=== PATIENT | male | born 1990 | race Caucasian/White ===

== ENCOUNTER 2024-10-02 12:50 | Emergency (ER) | payer OTHER, SELFPAY ==
[2024-10-02] VITALS (10 sets, daily range): BP systolic 119–141; BP diastolic 65–86; PULSE 53–60; RESP 12–17; TEMP 36.6; O2SAT 98–100; BMI 26.6
--- NOTE | 2024-10-02 12:54 | DI.RAD.S_ITS ---
PROCEDURE: XR CHEST 1V INDICATIONS: chest pain TECHNIQUE: One view of the chest was acquired. COMPARISON: None. FINDINGS: Surgical changes and devices: None. Lungs and pleura: An incomplete inspiratory result is noted, causing a crowded appearance to the lung markings. No focal infiltrates are seen. No pneumothorax or significant pleural effusions are seen. Mediastinum: Mediastinal contours appear normal. Heart size is normal. Bones and chest wall: No suspicious bony lesions. Overlying soft tissues appear unremarkable. IMPRESSION: Low lung volumes, without an acute abnormality seen by plain film. Dictated by: Dain Coronado M.D. on 10/02/2024 at 12:36 Approved by: Dain Coronado M.D. on 10/02/2024 at 12:36
--- NOTE | 2024-10-02 12:56 | EKG_ITS ---
[address] [id number] [address] [address] Test Date: 2024-10-02 Pat Name: Gokul Luis Department: Room: Gender: Male Dog Warden: LEE : 1990 Requested By: Order Number: [id number] Reading MD: Rajesh Block MD Measurements Intervals [place] Rate: 62 P: 51 OH: 148 QRS: 41 QRSD: 108 T: 35 QT: 386 QTc: 391 Interpretive Statements Normal sinus rhythm Electronically Signed On 10-03-2024 12:58:14 PST by Rajesh Block MD
[2024-10-02 13:12] LABS: Add Manual Diff / Slide Review NO; Basophils Absolute Auto 0 /uL (0-100); Basophils Percent Auto 0.4 % (0-2); Eosinophils Absolute Auto 100 /uL (0-450); Eosinophils Percent Auto 1.1 % (2-4); Hematocrit 47.1 % (41-53); Hemoglobin 16.3 g/dL (13.5-17.5); Lymphocytes Absolute Auto 2200 /uL (1100-4500); Lymphocytes Percent Auto 26.6 % (25-40); Mean Corpuscular HGB Conc 34.5 % (30-36); Mean Corpuscular Hemoglobin 31.3 PG (26-34); Mean Corpuscular Volume 90.8 fL (80-100); Monocytes Absolute Auto 800 /uL (0-900); Monocytes Percent Auto 9.4 % (3-14); Neutrophils Absolute Auto 5200 /uL (1500-7000); Neutrophils Percent Auto 62.5 % (50-75); Platelet Count 223 X10^3/uL (150-400); Red Blood Cell Count 5.19 X10^6/uL (4.5-5.9); Red Cell Distribution Width 12.6 % (11.6-14.8); White Blood Cell Count 8.3 X10^3/uL (4.5-11.0)
[2024-10-02 13:17] LABS: Prothrombin Time 11.4 SECONDS (9.4-12.5)
[2024-10-02 13:20] LABS: PTT Partial Thromboplastin Tim 39 SECONDS (25.1-36.5)
[2024-10-02] MEDS: ASPIRIN 81 MG CHEW TAB 324 MG PO (13:20)
[2024-10-02 13:36] LABS: Alanine Aminotransferase 39 IU/L (<50); Albumin 4.7 g/dL (3.5-5.0); Albumin Globulin Ratio 1.6 (1.0-2.8); Alkaline Phosphatase 55 U/L (38-126); Aspartate Aminotransferase 32 IU/L (17-59); BUN Creatinine Ratio 13.2 (6-22); Bilirubin Total 0.6 mg/dL (0.2-1.3); Blood Urea Nitrogen 15 mg/dL (9-20); Calcium 9.5 mg/dL (8.4-10.2); Carbon Dioxide 26 mmol/L (22-32); Chloride 103 mmol/L (98-107); Creatine Kinase 100 U/L (55-170); Estimated Glomerular Filt Rate > 60 mL/min (>60); Globulin 2.9 g/dL (1.7-4.1); Glucose 96 mg/dL (70-100); HEMOLYSIS < 15 (0-50); Lipase 120 U/L (23-300); Magnesium 1.9 mg/dL (1.6-2.3); Potassium 4.1 mmol/L (3.4-5.1); Sodium 138 mmol/L (137-145); Total Protein 7.6 g/dL (6.3-8.2)
[2024-10-02 13:48] LABS: NT-proBNP (BNP-Adult 18+) < 20 pg/mL (<125); Troponin I < 0.012 ng/mL (0.01-0.034)
--- NOTE | 2024-10-02 15:16 | ED_ITS ---
HPI - Chest Pain General Chief Complaint: Chest Pain Stated Complaint: chest discomfort, chest/shoulder/back tightness Time Seen by Provider: 10/02/24 15:07 History of Present Illness HPI narrative: Patient is a 34-year-old healthy male who presents today with left-sided pain. He reports that a night or 2 ago he would sudden on his shoulders kind of fell backwards and felt some strain all along left side there. This morning he was standing in the kitchen trying to get coffee when he had increasing pain and tingling in his left arm it went into his chest and all the way down his abdomen. He then felt like he was panicking and having difficulty breathing. But now symptoms have all completely resolved. He was absolutely no chest pain shortness of breath. He has not had fever chills sore throat or cough. Family history includes grandfather having VT at age greater than 60. He is overall feeling better asking if he can eat. Related Data Allergies Allergy/AdvReac Type Severity Reaction Status Date / Time No Known Drug Allergies Allergy Verified 10/02/24 13:19 Exam Initial Vital Signs Initial Vital Signs: Vital Signs Pulse Rate 59 L 10/02/24 12:55 Respiratory Rate 16 10/02/24 12:55 Blood Pressure 141/86 H 10/02/24 12:55 Pulse Oximetry 99 10/02/24 12:55 GENERAL: Well-appearing, well-nourished and in no acute distress. HEENT: Head atraumatic,EOMI, pupils reactive, face symmetric, moist mucous membranes CARDIOVASCULAR: Regular rate and rhythm without murmurs, rubs or gallops. RESPIRATORY: Breath sounds equal bilaterally, no wheezes rales or rhonchi. ABDOMEN: Soft, nontender. Normoactive bowel sounds all 4 quadrants. No guarding or rebound. EXTREMITIES: Normal range of motion, no clubbing or edema. Neurovascularly intact NEUROLOGICAL: Alert and oriented x4.Normal gait and speech. Cranial nerves II through XII grossly intact. SKIN: Warm, dry, no laceration, no petechiae, no rashes or lesions. Scores HEART Score Heart Score history: Slightly Suspicious Heart Score EKG: Normal Heart Score Age: < 45 years old Heart Score risk factors: No known risk factors Heart Score troponin: < or = to normal limit Heart Score Total: 0 Course Orders Ordered: ED Orders 10/02/24 12:54 XR chest 1V Stat EKG-12 Lead Stat 10/02/24 13:00 Complete Blood Count AUTO DIFF Stat Comprehensive Metabolic Panel Stat Lipase Stat Magnesium Stat NT-proBNP (BNP-Adult 18+) Stat PTT Partial Thromboplastin Abhishek Stat Prothrombin Time INR Stat Troponin & CK Cardiac Panel Stat 10/02/24 14:53 Trop I [Troponin I] Stat Discontinued Medications Aspirin (Aspirin 81 Mg Chew Tab) 324 mg PO NOW ONE Stop: 10/02/24 12:55 Last Admin: 10/02/24 13:20 Dose: 324 mg Documented By: BRENNAN Vital Signs Vital signs: Vital Signs - 8 hr 10/02/24 12:55 10/02/24 12:58 10/02/24 13:23 Temperature 97.9 F Pulse Rate 59 L 60 59 L Respiratory Rate 16 16 13 Blood Pressure 141/86 H 141/86 H 125/77 Pulse Oximetry 99 99 100 Oxygen Delivery Method Room Air Room Air 10/02/24 13:30 10/02/24 14:00 10/02/24 14:31 Temperature Pulse Rate 56 L 57 L 57 L Respiratory Rate 17 15 Blood Pressure 119/74 121/77 Pulse Oximetry 99 98 Oxygen Delivery Method 10/02/24 15:00 10/02/24 15:27 10/02/24 15:27 Temperature Pulse Rate 56 L 57 L Respiratory Rate 12 15 Blood Pressure 119/72 Pulse Oximetry 100 Oxygen Delivery Method 10/02/24 15:30 10/02/24 15:32 10/02/24 15:32 Temperature Pulse Rate 53 L 56 L Respiratory Rate 13 13 Blood Pressure 124/65 Pulse Oximetry 100 Oxygen Delivery Method MDM - Chest Pain Lab Data 10/02/24 13:00 10/02/24 13:00 Labs: Lab Results 10/02/24 10/02/24 Range/Units 13:00 14:53 WBC 8.3 (4.5-11.0) X10^3/uL RBC 5.19 (4.5-5.9) X10^6/uL Hgb 16.3 (13.5-17.5) g/dL Hct 47.1 (41-53) % MCV 90.8 (80-100) fL MCH 31.3 (26-34) PG MCHC 34.5 (30-36) % RDW 12.6 (11.6-14.8) % Plt Count 223 (150-400) X10^3/uL Neut % (Auto) 62.5 (50-75) % Lymph % (Auto) 26.6 (25-40) % Laurens % (Auto) 9.4 (3-14) % Eos % (Auto) 1.1 L (2-4) % Baso % (Auto) 0.4 (0-2) % Neut # (Auto) 5200 (7003-8168) /uL Lymph # (Auto) 2200 (0251-7498) /uL [place] # (Auto) 800 (0-900) /uL Eos # (Auto) 100 (0-450) /uL Baso # (Auto) 0 (0-100) /uL PT 11.4 (9.4-12.5) SECONDS INR 1.0 (0.9-1.3) APTT 39 H (25.1-36.5) SECONDS Sodium 138 (137-145) mmol/L Potassium 4.1 (3.4-5.1) mmol/L Chloride 103 (98-107) mmol/L Carbon Dioxide 26 (22-32) mmol/L BUN 15 (9-20) mg/dL Creatinine 1.14 (0.66-1.25) mg/dL Estimated GFR > 60 (>60) mL/min BUN/Creatinine Ratio 13.2 (6-22) Glucose 96 (70-100) mg/dL Calcium 9.5 (8.4-10.2) mg/dL Magnesium 1.9 (1.6-2.3) mg/dL Total Bilirubin 0.6 (0.2-1.3) mg/dL AST 32 (17-59) IU/L ALT 39 (<50) IU/L Alkaline Phosphatase 55 (38-126) U/L Total Creatine Kinase 100 (55-170) U/L Troponin I < 0.012 < 0.012 (0.01-0.034) ng/mL NT-Pro-B Natriuret Pep < 20 (<125) pg/mL Total Protein 7.6 (6.3-8.2) g/dL Albumin 4.7 (3.5-5.0) g/dL Globulin 2.9 (1.7-4.1) g/dL Albumin/Globulin Ratio 1.6 (1.0-2.8) Lipase 120 (23-300) U/L Imaging Data Chest x-ray: Radiologist's Impression: PROCEDURE: XR CHEST 1V INDICATIONS: chest pain TECHNIQUE: One view of the chest was acquired. COMPARISON: None. FINDINGS: Surgical changes and devices: None. Lungs and pleura: An incomplete inspiratory result is noted, causing a crowded appearance to the lung markings. No focal infiltrates are seen. No pneumothorax or significant pleural effusions are seen. Mediastinum: Mediastinal contours appear normal. Heart size is normal. Bones and chest wall: No suspicious bony lesions. Overlying soft tissues appear unremarkable. IMPRESSION: Low lung volumes, without an acute abnormality seen by plain film. Dictated by: Dain Coronado M.D. on 10/02/2024 at 12:36 ECG Data Attestation: I personally reviewed and interpreted this ECG as follows: Interpretation: Sinus rhythm rate 62 [place] interval 148 QRS [address] changes no T-wave inversions MDM Narrative Medical decision making narrative: MDM CC: Chest pain Complicating co-morbidities: Healthy 34-year-old male Medical records reviewed: none Differential considered: Acute coronary syndrome pericarditis viral illness pneumonia pericardial effusion Exam documented above, pertinent findings include: Well-appearing 34-year-old male. Bedside ultrasound does not show any evidence of pericardial effusion Lab Test results independently reviewed as above. Pertinent findings: Troponin negative No leukocytosis no anemia No electrolyte abnormalities Independently reviewed EKG as above Normal sinus rhythm without ischemia no priors to there Imaging studies independently reviewed: No acute cardiopulmonary process Treatments: Aspirin Re-evaluations: Patient feeling better after as Discussion: Patient is a healthy 34-year-old male who presents today with left- sided pain. It started while just standing in the kitchen. Blood work is overall reassuring he has a negative troponin. Symptoms are not consistent with any kind of cardiac disease or acute coronary syndrome. No sign of CVA or TIA. He does not have any evidence of pericardial effusion or pericarditis. At this time I suspect musculoskeletal injury. Heart score is 0 Discharge Plan Departure Patient Disposition: Home Clinical Impression: Atypical chest pain Instructions: DI for Atypical Chest Pain Activity Restrictions/Additional Instructions: *You have been diagnosed with atypical chest pain *What to do: At this time blood work and ER evaluation is overall reassuring Increase activity as tolerated *Continue to take medications as directed May try Tylenol Motrin as needed *Follow up with your primary care provider in 2-3 days or call [phone] *Return to ER if you should have increasing pain shortness of or any new, worsening or concerning symptoms Referrals: ProviderKeith [Primary Care Provider] - Stand Alone Forms: Patient Portal/API/Survey
[2024-10-02 15:38] LABS: Troponin I < 0.012 ng/mL (0.01-0.034)
== END 2024-10-02 15:40 | disposition home or self-care (01) ==
PROVIDERS: Emergency Provider Emergency Medicine
DX: R07.89 Other chest pain (principal); M79.602 Pain in left arm; R20.2 Paresthesia of skin; Z82.49 Family history of ischemic heart disease and other diseases of the circulatory system
CPT/HCPCS: 36415; 71045; 80053; 82550; 83690; 83735; 83880; 84484; 85025; 85610; 85730; 93005; 93010; 99284